=== PATIENT | male | born 1990 | race African-American/Black ===

== ENCOUNTER 2016-12-11 10:05 | Emergency (ER) | payer OTHER ==
[~2016-12-11] VITALS: Ht 185.4 cm; Wt 74.8 kg
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
[2016-12-11] MEDS ORDERED: NAPROSYN500 M1 PO (12:18)
[2016-12-11] MEDS ORDERED: AMBIEN5 M1 PO (12:18)
[2016-12-11 12:26] VITALS: BP 114/74
== END 2016-12-11 12:28 ==
LOC: ERH 10:05
DX: J11.1 Influenza due to unidentified influenza virus with other respiratory manifestations (principal); Z87.891 Personal history of nicotine dependence

== ENCOUNTER 2017-04-07 04:21 | Emergency (ER) | payer OTHER ==
[~2017-04-07] VITALS: Ht 177.8 cm; Wt 68.0 kg
[~2017-04-07 04:21] MED LIST: AMBIEN5 M1 PO; NAPROSYN500 M1 PO
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
[2017-04-07 05:38] VITALS: BP 128/80
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
== END 2017-04-07 05:41 ==
LOC: ERH 04:21
DX: S51.842A Puncture wound with foreign body of left forearm, initial encounter (principal); S20.219A Contusion of unspecified front wall of thorax, initial encounter; V89.2XXA Person injured in unspecified motor-vehicle accident, traffic, initial encounter; Y92.411 Interstate highway as the place of occurrence of the external cause

== ENCOUNTER 2018-02-13 10:44 | Emergency (ER) | payer OTHER ==
[~2018-02-13] VITALS: Ht 182.9 cm; Wt 74.8 kg
--- NOTE | 2018-02-13 11:59 | ED THROAT/DENTAL COMPLAINT ---
History of Present Illness General Chief Complaint: General Adult Stated Complaint: PT REQUESTING "URINE CULTURE",PAIN WITH SWALLOWING Source: patient Exam Limitations: no limitations Vital Signs & Intake/Output Vital Signs & Intake/Output Vital Signs Date Time Temp Pulse Resp B/P B/P Pulse O2 O2 Flow FiO2 Mean Ox Delivery Rate 02/13 1048 99.1 76 18 101/65 96 Room Air Allergies Uncoded Allergies: POLLEN (10/11/11) Reconcile Medications No Known Home Medications Triage Note: PT FROM HOME C/O SWOLLEN GLANDS IN THROAT AND "URINE CULTURE" REQUESTED BY PT. PT STATES PT STATES THROAT IS SWOLLEN AND ITS HARD TO SWOLLEN X1 DAY. PT STATES " I WOULD ALSO LIKE A URINE CULTURE TO SEE WHERE IM AT" PT STATES URINARY FREQUENCY "BUT I DRINK A LOT OF WATER" PT STATES DISCOMFORT AFTER PEEING. PT STATES "YEAH AN STD PANEL CAN BE TESTED TOO" VSS, LOW GRADE TEMP 99.1 Triage Nurses Notes Reviewed? yes Onset: Gradual Duration: day(s): Timing: recent history Severity: moderate HPI: 27YO male presents to ED complaining of swollen glands in throat x 2 days. Patient states that he had a sore throat which traveled down his throat a few days ago. Sore throat has resolved however his glands are still swollen. Patient has a history of seasonal allergies, unsure if this is related. Patient is also requesting urine culture and STD testing. He reports urinary frequency and dysuria for the past few days. He has a history of chlamydia once in the past. Patient is sexually active, unknown exposure to STDs, did not use barrier protection. Patient denies fevers, ear pain, cough, dyspnea, abdominal pain, vomiting, diarrhea, constipation. Past History Travel History Traveled to [place] past 21 day No Medical History Any Pertinent Medical History? 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 No Review of Systems Review of Systems Constitutional: Reports: no symptoms. EENTM: Reports: see HPI. Respiratory: Reports: no symptoms. Cardiovascular: Reports: no symptoms. GI: Reports: no symptoms. Genitourinary: Reports: see HPI. Musculoskeletal: Reports: no symptoms. Skin: Reports: no symptoms. Neurological/Psychological: Reports: no symptoms. Hematologic/Endocrine: Reports: no symptoms. Immunologic/Allergic: Reports: no symptoms. All Other Systems: Reviewed and Negative Physical Exam Physical Exam General Appearance: well developed/nourished, no apparent distress, alert, awake Head: atraumatic, normal appearance Eyes: Bilateral: normal appearance. Ears: Bilateral: canal normal, Tympanic normal. Nose: normal inspection Mouth/Throat: normal mouth inspection, pharynx normal, uvula midline, no pharyngeal swelling, erythema, or exudates Neck: supple, full range of motion, bilateral tender anterior cervical LAD Cardiovascular/Respiratory: normal breath sounds, regular rate/rhythm, no respiratory distress Gastrointestinal: soft, nontender Back: normal inspection, normal range of motion Neurologic/Psych: awake, alert, oriented x 3 Skin: intact, normal color, warm/dry Core Measures ACS in differential dx? No Sepsis Present: No Sepsis Focused Exam Completed? No Progress Differential Diagnosis: odontogenic abscess, jeannie-tonsillar abscess, strep pharyngitis, mono, viral pharyngitis, allergies, STD, UTI Plan of Care: Orders Procedure Date/time Status CULTURE,URINE 02/13 1104 Active CHLAMYDIA-GC DNA PROBE 02/13 110 Active URINALYSIS 02/13 110 Complete THROAT CULTURE W/QUICK STREP 02/13 1052 Active Current Medications Sig/[place] Start time Last Medication Dose Stop Time Status Admin Acetaminophen 650 MG ONCE ONE 02/13 1215 AC (Tylenol) 02/13 1216 Azithromycin 1,000 MG ONE ONE 02/13 1215 AC (Zithromax) 02/13 1216 Ceftriaxone Sodium 250 MG ONCE ONE 02/13 1215 AC (Rocephin) 02/13 1216 Laboratory Tests 02/13/18 1110: Urinalysis LIGHT H, Urine Color YEL, Urine Clarity CLEAR, Urine pH 6.5, Ur Specific [place] 1.020, Urine Protein TRACE H, Urine Ketones NEG, Urine Nitrite NEG, Urine Bilirubin NEG, Urine Urobilinogen 2.0 H, Ur Leukocyte Esterase NEG, Ur Microscopic SEDIMENT EXAMINED, Urine RBC RARE, Urine WBC RARE, Ur Epithelial Cells RARE, Urine Bacteria RARE H, Urine Mucus MANY H, Urine Hemoglobin NEG, Urine Glucose NEG Microbiology 02/13 1110 URINE ROUT: GC DNA Probe - RECD 02/13 1110 URINE ROUT: Chlamydia DNA Probe (AVEL) - RECD 02/13 1110 URINE ROUT: Urine Culture - RECD Rapid strep test is negative. Patient's swollen glands are likely related to viral versus allergic pharyngitis. Patient instructed on supportive care including rest, fluids, antipyretics, analgesics. Patient's urine is without evidence for acute UTI. Patient informed that there is a possibility he has gonorrhea/chlamydia. Patient is requesting to be treated for STI today, he is worried that he was exposed given his symptoms and his history. Will treat based on patient's dysuria and frequency symptoms. The patient agrees with the plan of care. Patient is in no acute distress, nontoxic appearing, vital signs are stable. Departure Departure Disposition: HOME OR SELF CARE Condition: Stable Clinical Impression Primary Impression: Pharyngitis Qualifiers: Pharyngitis/tonsillitis etiology: unspecified etiology Qualified Code: J02.9 - Acute pharyngitis, unspecified Secondary Impressions: Dysuria, Encounter for assessment of STD exposure Referrals: Pricila Huntley APRN (PCP/Family) Additional Instructions: Increase fluids and rest. Take Tylenol or ibuprofen as prescribed as needed for pain and swelling. He may also try Flonase allergy spray or Zyrtec/Claritin to help with allergy symptoms. We will call you in 2 days with the results of your culture. Return with any worsening symptoms or other concerns. Please note that there might be incidental findings in your evaluation that are unrelated to the current emergency department visit. Please notify your primary care doctor about this emergency department visit in order to obtain and review all of the testing performed so that these incidental findings can be monitored as needed. If you had an x-ray performed, please understand that some fractures may not be seen on the initial set of x-rays. If your symptoms persist you might need a repeat set of x-rays to check for such a fracture. If you had a laceration evaluated, please understand that foreign bodies such as glass or wood may not be visible to the naked eye or on plain x-rays. If the wound becomes red, swollen, increasingly more painful or if there is any drainage from the wound, please have it reevaluated by a physician for the possibility of a retained foreign body. If you're unable to follow up as outlined in the discharge instructions please return to the emergency department. Thank you for choosing the [facility] Emergency Department for your care. It was a pleasure to serve you today. Departure Forms: Customer Survey General Discharge Information Prescriptions: Current Visit Scripts No Known Home Medications
[2018-02-13 12:10] VITALS: BP 118/57
== END 2018-02-13 12:19 ==
LOC: ERH 10:44
DX: J02.9 Acute pharyngitis, unspecified (principal); R30.0 Dysuria; Z20.2 Contact with and (suspected) exposure to infections with a predominantly sexual mode of transmission
CPT/HCPCS: 81001; 87086; 87147; 87491; 87591; 96372; J0696

== ENCOUNTER 2018-04-02 08:32 | Emergency (ER) | payer OTHER ==
[~2018-04-02] VITALS: Ht 182.9 cm; Wt 75.8 kg
[2018-04-02 08:37] VITALS: BP 131/81
--- NOTE | 2018-04-02 08:48 | ED GI/GU/ABDOMINAL COMPLAINT ---
See Addendum History of Present Illness General Chief Complaint: Male Genitourinary Problems Stated Complaint: STATES HAS DISCHARGE FROM PENIS Source: patient Exam Limitations: no limitations Vital Signs & Intake/Output Vital Signs & Intake/Output Vital Signs Date Time Temp Pulse Resp B/P B/P Pulse O2 O2 Flow FiO2 Mean Ox Delivery Rate 04/02 0837 98.2 63 18 131/81 98 Room Air Allergies Uncoded Allergies: POLLEN (10/11/11) Reconcile Medications No Known Home Medications Triage Note: 27 YO MALE TO TRIAGE FOR EVAL OF DICHARGE FROM PENIS X2 DAYS. STATES SLIGHT BURNING WITH URINATION. Triage Nurses Notes Reviewed? yes Onset: Abrupt Duration: day(s): Timing: recent history Location: urethral Radiation: no radiation Activities at Onset: none No Modifying Factors: none HPI: 27-year-old male comes into the emergency room for further evaluation of discharge from his penis. He sexually active with men. Several partners over last 6 months. History of chlamydia. he reports some mild discomfort to the tip of his penis. Some yellowish discharge. Denies any testicle pain or any other symptoms. Comes in for further evaluation. Past History Travel History Traveled to [place] past 21 day No Medical History Any Pertinent Medical History? 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 No Review of Systems Review of Systems Constitutional: Reports: no symptoms. EENTM: Reports: no symptoms. Respiratory: Reports: no symptoms. Cardiovascular: Reports: no symptoms. GI: Reports: no symptoms. Genitourinary: Reports: see HPI. Musculoskeletal: Reports: no symptoms. Skin: Reports: no symptoms. Neurological/Psychological: Reports: no symptoms. Hematologic/Endocrine: Reports: no symptoms. Immunologic/Allergic: Reports: no symptoms. All Other Systems: Reviewed and Negative Physical Exam Physical Exam General Appearance: well developed/nourished, alert, awake Head: atraumatic Eyes: Bilateral: normal appearance, EOMI. Ears, Nose, Throat, Mouth: hearing grossly normal, moist mucous membrane Neck: normal inspection Respiratory: no respiratory distress Gastrointestinal: not examined Male Genitals: urethral discharge, Normal inspection otherwise, no scrotal tenderness/testicular pain Back: normal range of motion Extremities: normal range of motion Neurologic/Psych: awake, alert, oriented x 3 Core Measures ACS in differential dx? No Sepsis Present: No Sepsis Focused Exam Completed? No Progress Differential Diagnosis: STD, ureterolithiasis, urinary retention, urethritis, UTI/pyelo Plan of Care: Orders Procedure Date/time Status CHLAMYDIA-GC DNA PROBE 04/02 840 Active URINALYSIS 04/02 840 Complete Laboratory Tests 04/02/18 0850: Urine Color YEL, Urine Clarity CLEAR, Urine pH 7.0, Ur Specific [place] 1.010, Urine Protein NEG, Urine Ketones NEG, Urine Nitrite NEG, Urine Bilirubin NEG, Urine Urobilinogen 0.2, Ur Leukocyte Esterase LARGE H, Ur Microscopic SEDIMENT EXAMINED, Urine WBC 10-15 H, Urine Hemoglobin NEG, Urine Glucose NEG Microbiology 04/02 850 URINE ROUT: GC DNA Probe - RECD 04/02 850 URINE ROUT: Chlamydia DNA Probe (AVEL) - RECD Initial ED EKG: none Departure Departure Disposition: HOME OR SELF CARE Condition: Stable Clinical Impression Primary Impression: Urethritis Referrals: Pricila Huntley APRN (PCP/Family) Additional Instructions: Follow-up with your primary care doctor for full STD panel. Do not engage in any sexual activity until results. Return if any other concerns. Please go over all results of today's visit with your primary care doctor. Contact your primary care doctor to let them know you were here in the emergency room. There may be nonspecific findings which may not be related to your visit today here in the emergency room but may require further evaluation and chronic monitoring by your primary care doctor. If you had a laceration today the chance of foreign body always remains. You should follow-up with your primary care doctor for recheck in 3-5 days for a wound check. If you had an x-ray done there is a chance that a fracture could have been missed on initial read and you should follow-up with your primary care doctor for repeat x-rays if symptoms persist. If your blood pressure was elevated here in the emergency room please have rechecked by [facility] primary care doctor within the next 48. If you were prescribed a narcotic here in the emergency room or any type of controlled substances you're not allowed to drive while taking this medication or operate any type of heavy machinery. Narcotics can make you feel lightheaded dizziness nausea and can cause constipation. 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 Thank you for choosing [facility] emergency room. Please return to the emergency room immediately if you have any other concerns worsening of symptoms. Departure Forms: Customer Survey General Discharge Information Prescriptions: Current Visit Scripts No Known Home Medications Comments 04/02/2018 10:17:23 AM Patient's symptoms are consistent with gonorrhea/chlamydia. Treated prophylactically. Follow-up with primary care doctor. Return if any other concerns worsening symptoms. Patient understands and agrees with plan of care.
== END 2018-04-02 09:24 ==
LOC: ERH 08:32
DX: N34.2 Other urethritis (principal)
CPT/HCPCS: 81001; 87491; 87591; 96372; J0456; J0696

== ENCOUNTER 2018-04-27 18:08 | Emergency (ER) | payer OTHER ==
[2018-04-27 18:19] VITALS: BP 113/69
[2018-04-27] MEDS ORDERED: VIGAMOX3 ML OPH (19:36)
[2018-04-27] MEDS ORDERED: PATADAY2.5 ML OPH (19:36)
--- NOTE | 2018-04-27 19:37 | ED GENERAL ADULT ---
History of Present Illness General Chief Complaint: Eye Problems Stated Complaint: EYE PAIN Source: patient Exam Limitations: no limitations Vital Signs & Intake/Output Vital Signs & Intake/Output Vital Signs Date Time Temp Pulse Resp B/P B/P Pulse O2 O2 Flow FiO2 Mean Ox Delivery Rate 04/27 1819 98.8 58 18 113/69 98 Room Air Allergies Uncoded Allergies: POLLEN (10/11/11) Reconcile Medications Moxifloxacin Hydrochloride (Vigamox) 0.5 % DROPS 1 GTT OPH TID conjunctivitis Olopatadine HCl (Pataday) 0.2 % DROPS 1 GTT OPH DAILY conjunctivitis Triage Note: 27M TO ED FOR LEFT EYE PAIN, REDNESS, IRRITATION. FIRST OCCURRED SUNDAY AND WENT TO URGENT CARE AND RX'ED ANTBX GTT'S STATES IT IS THE SAME. DENIES ANY KNOWN TRAUMA OR EXPOSURES. DENIES VISION CHANGES. +TEARING. Triage Nurses Notes Reviewed? yes Onset: Gradual Duration: day(s): Timing: constant HPI: 27-year-old otherwise healthy male presenting with left eye redness, itching, and clear watery discharge 2 days. Patient was seen at a walk-in 2 days ago and given ofloxacin GTT which he has been using for the past 2 days. Presents to the emergency department now because his symptoms have not yet resolved. Denies eye pain, visual changes, eye trauma. (Emma Fall) Past History Travel History Traveled to [place] past 21 day No Medical History Any Pertinent Medical History? none Neurological: NONE EENT: NONE Cardiovascular: NONE Respiratory: NONE Gastrointestinal: NONE Hepatic: NONE Renal: NONE Musculoskeletal: NONE Psychiatric: NONE Endocrine: NONE Blood Disorders: NONE Cancer(s): NONE CLINICAL DOCUMENTATION IMPROVEMENT SPECIALIST/Reproductive: chlamydia Surgical History Surgical History: non-contributory Psychosocial History What is your primary language Filipino Tobacco Use: Quit >30 days ago Family History Hx Contributory? No (Emma Fall) Review of Systems Review of Systems Constitutional: Reports: no symptoms. EENTM: Denies: see HPI. Respiratory: Reports: no symptoms. Cardiovascular: Reports: no symptoms. GI: Reports: no symptoms. Genitourinary: Reports: no symptoms. Musculoskeletal: Reports: no symptoms. Skin: Reports: no symptoms. Neurological/Psychological: Reports: no symptoms. Hematologic/Endocrine: Reports: no symptoms. Immunologic/Allergic: Reports: no symptoms. All Other Systems: Reviewed and Negative (Emma Fall) Physical Exam Physical Exam General Appearance: well developed/nourished, no apparent distress, alert, awake , comfortable Head: atraumatic, normal appearance Eyes: Left: other (conjunctival injections). Right: normal appearance. Bilateral: PERRL, EOMI. Ears, Nose, Throat: normal ENT inspection Neck: normal inspection Respiratory: normal breath sounds, lungs clear Cardiovascular: regular rate/rhythm Gastrointestinal: soft, non-tender Back: normal inspection Extremities: normal inspection Neurologic/Psych: awake, alert, oriented x 3, normal gait, normal mood/affect Skin: intact, normal color, warm/dry Comments: On exam of the left eye there are conjunctival injections with clear watery discharge, no ocular tenderness to palpation, no lid inflammation, no photophobia, pupils equally round and reactive, EOMs unrestricted, visual acuity 20/20. Core Measures ACS in differential dx? No CVA/TIA Diagnosis: No Sepsis Present: No Sepsis Focused Exam Completed? No (Emma Fall) Progress Differential Diagnoses I considered the following diagnoses in my evaluation of the patient: [Bacterial versus allergic versus viral conjunctivitis, low concern for scleritis/ episcleritis versus uveitis/iritis versus foreign body] Plan of Care: Patient reports that he lost his prescription for topical ofloxacin. Given Rx Vigamox and Pataday. Suspect patient likely has allergic versus viral conjunctivitis. Instructed he can also use Claritin to help with symptomatic relief, patient states that he does not want to take any oral medications. Instructed to follow-up with his primary care provider and given strict return precautions. Initial ED EKG: none (Emma Fall) Departure Departure Disposition: HOME OR SELF CARE Condition: Stable Clinical Impression Primary Impression: Conjunctivitis Referrals: Pricila Huntley APRN (PCP/Family) Additional Instructions: Use Vigamox and Pataday as prescribed. Follow-up with your primary care provider for reevaluation. Return to emergency department for any new or worsening symptoms. Departure Forms: Customer Survey General Discharge Information Prescriptions: Current Visit Scripts Moxifloxacin Hydrochloride (Vigamox) 1 GTT OPH TID #3 ML Olopatadine HCl (Pataday) 1 GTT OPH DAILY #1 BOT (Emma Fall) PA/EPIC MANAGER Co-Sign Statement Statement: ED Attending supervision documentation- [] I saw and evaluated the patient. I have also reviewed all the pertinent lab results and diagnostic results. I agree with the findings and the plan of care as documented in the PA's/EPIC MANAGER's documentation. [X] I have reviewed the ED Record and agree with the PA's/EPIC MANAGER's documentation. [] Additions or exceptions (if any) to the PAs/EPIC MANAGER's note and plan are summarized below: [] (Yoel DEVI,Jerry Norton) Critical Care Note Critical Care Note Critical Care Time: non-applicable (Emma Fall)
== END 2018-04-27 19:40 ==
LOC: ERH 18:08
DX: H10.9 Unspecified conjunctivitis (principal)